=== PATIENT | female | born 1970 | race African-American/Black ===

== ENCOUNTER 2018-08-13 14:22 | Emergency (ER) | payer OTHER ==
[~2018-08-13] VITALS: Ht 167.6 cm; Wt 81.4 kg
[2018-08-13 14:28] VITALS: BP 110/69
[2018-08-13 15:13] LABS: BASOPHILS % (AUTO) 0.4 % (0.0-2.0); EOSINOPHILS % (AUTO) 2.2 % (1.0-6.0); LYMPHOCYTES # (AUTO) 1.8 K/uL (1.0-4.8); MEAN CORPUSCULAR HGB CONC 30.9 G/dL (31.0-37.0); NEUTROPHILS # (AUTO) 8.1 K/uL (1.8-7.7)
[2018-08-13 15:21] LABS: LYMPHOCYTES % (AUTO) 16.7 % (22.0-44.0); MEAN CORPUSCULAR HEMOGLOBIN 22.1 pg (26.0-34.0); MEAN CORPUSCULAR VOLUME 72 fL (80-100); MONOCYTES # (AUTO) 0.5 K/uL (0.1-1.0); MONOCYTES % (AUTO) 5.1 % (2.0-9.0); NEUTROPHILS % (AUTO) 75.6 % (40.0-70.0); PLATELET COUNT (AUTO) 397 K/uL (150-450); RED BLOOD CELL COUNT(AUTO) 3.08 MIL/uL (4.00-5.20); RED CELL DISTRIBUTION WIDTH 25.4 % (11.5-14.5)
[2018-08-13 15:24] LABS: HEMOGLOBIN 6.8 g/dL (12.0-16.0)
== END 2018-08-13 17:20 | disposition left against medical advice (07) ==
LOC: EDUNIT# 14:22 → EMS 14:27
DX: N93.9 Abnormal uterine and vaginal bleeding, unspecified (principal); Z53.21 Procedure and treatment not carried out due to patient leaving prior to being seen by health care provider